=== PATIENT | female | born 1975 | race Caucasian/White ===

== ENCOUNTER 2021-10-31 04:37 | Day surgery (SDC) | payer BC ==
[2021-10-27 10:25] VITALS: BMI 25.7
[2021-10-31] MEDS ORDERED: oxyCODONE HCL 5 MG TABLET PO PRN (16:21)
[2021-10-31] MEDS ORDERED: ONDANSETRON 4 MG/2 ML VIAL IVPUSH PRN (16:21)
[2021-10-31] MEDS ORDERED: LACTATED RINGERS SOLUTION 1,000 ML IV SCH (16:30)
[2021-10-31 16:44] VITALS: TEMP 97.7
[2021-10-31 17:06] VITALS: BP 128/63; PULSE 87
== END 2021-10-31 17:05 | disposition home or self-care (01) ==
LOC: JASU-SURG 04:37
PROVIDERS: ATTEND Student in an Organized Health Care Education/Training Program
PROC: 0UDB7ZX Extraction of Endometrium, Via Natural or Artificial Opening, Diagnostic (ICD-10-PCS; 2021-10-31)
PROC: 0UJD8ZZ Inspection of Uterus and Cervix, Via Natural or Artificial Opening Endoscopic (ICD-10-PCS; 2021-10-31)
PROC: 0UB98ZZ Excision of Uterus, Via Natural or Artificial Opening Endoscopic (ICD-10-PCS; principal; 2021-10-31 15:00)
DX: D25.9 Leiomyoma of uterus, unspecified (principal)
CPT/HCPCS: 81025; 94760